=== PATIENT | male | born 1955 | race Two or more races ===

== ENCOUNTER → 2025-01-08 | Emergency (ER) | payer OTHER | END | disposition home or self-care (01) | LOC: ER 17:07 | DX: S63.283A Dislocation of proximal interphalangeal joint of left middle finger, initial encounter (principal); X58.XXXA Exposure to other specified factors, initial encounter; Y93.89 Activity, other specified; Y92.89 Other specified places as the place of occurrence of the external cause; Y99.9 Unspecified external cause status ==